=== PATIENT | male | born 1980 | race Caucasian/White ===

== ENCOUNTER 2024-01-16 21:46 | Observation (INO) | payer SELFPAY ==
[2024-01-17 00:50] VITALS: BP 167/110; TEMP 98.1; O2SAT 98
[2024-01-17 00:52] VITALS: BP 150/90
[2024-01-17 01:00] VITALS: O2SAT 98
[2024-01-17] MEDS ORDERED: MAALOX 30 ML SUSP *UDC PO PRN (03:20)
[2024-01-17] MEDS ORDERED: KETOROLAC 30 MG/ML 1ML VIAL IV PRN (03:20)
[2024-01-17] MEDS ORDERED: MOM 30ML SUSPENSION UDC PO PRN (03:20)
[2024-01-17] MEDS ORDERED: ACETAMINOPHEN 325 MG TAB PO PRN (03:20)
[2024-01-17] MEDS ORDERED: methocarbamoL 500 MG TAB PO PRN (03:45)
[2024-01-17 04:02] VITALS: BP 126/82; TEMP 97; O2SAT 98
[2024-01-17] MEDS ORDERED: ALBUTEROL SULFATE 2.5MG/0.5ML INH NEB SOLN NEB PRN (04:10)
[2024-01-17] MEDS: KETOROLAC 30 MG/ML 1ML VIAL IV PRN (04:16)
[2024-01-17 05:50] LABS: HEMATOCRIT 36.5 % (42.0-52.0); HEMOGLOBIN 12.9 g/dl (13.5-17.5); MEAN CORPUSCULAR HEMOGLOBIN 30.2 pg (27.0-33.0); MEAN CORPUSCULAR HGB CONC 35.3 g/dl (32.0-36.5); MEAN CORPUSCULAR VOLUME 85.5 fl (80.0-96.0); PLATELET COUNT, AUTOMATED 228 10^3/uL (150-450); RED BLOOD COUNT 4.27 10^6/uL (4.30-6.10); WHITE BLOOD COUNT 8.4 10^3/uL (4.0-10.0)
[2024-01-17 06:01] LABS: INR 1.01; PROTHROMBIN TIME 13.6 SECONDS (12.5-14.5)
[2024-01-17 06:20] LABS: CK-MB VALUE MASS 2.2 NG/ML (<3.6)
[2024-01-17 06:22] LABS: ALBUMIN 3.7 G/DL (3.2-5.2); ALKALINE PHOSPHATASE 56 U/L (40-129); ALT/SGPT 28 U/L (7.0-40); AST/SGOT 23 U/L (<34); BILIRUBIN,TOTAL 1.1 MG/DL (0.3-1.2); BLOOD UREA NITROGEN 12 MG/DL (9-23); CALCIUM LEVEL 9.3 MG/DL (8.5-10.1); CARBON DIOXIDE LEVEL 25 MMOL/L (20-31); CHLORIDE LEVEL 107 MMOL/L (98-107); CPK CREATINE PHOSPHOKINASE 443 U/L (46-171); CREATININE FOR GFR 0.84 MG/DL (0.70-1.30); GLOMERULAR FILTRATION RATE > 60.0 (>60); GLUCOSE, FASTING 122 MG/DL (60-100); MB/CK RELATIVE INDEX 0.49 (< OR =4); POTASSIUM SERUM 3.5 MMOL/L (3.5-5.1); SODIUM LEVEL 140 MMOL/L (136-145); TOTAL PROTEIN 6.8 G/DL (5.7-8.2)
[2024-01-17 06:29] LABS: PROCALCITONIN 0.04 ng/ml
[2024-01-17] MEDS ORDERED: CENT1TAB2 PO (06:47)
[2024-01-17] MEDS ORDERED: ZOLO100T PO (06:47)
[2024-01-17] MEDS ORDERED: HOME MED LIST COMPLETE! XX SCH (06:50)
[2024-01-17 08:00] VITALS: BP 144/89; TEMP 96.8; O2SAT 95
[2024-01-17] MEDS: DOCUSATE SODIUM 100MG CAPSULE PO SCH (09:00)
[2024-01-17] MEDS: SERTRALINE 100 MG TAB PO SCH (09:01)
[2024-01-17 12:00] VITALS: BP 143/86; TEMP 97.3; O2SAT 96
[2024-01-17] MEDS ORDERED: METH-1164 PO (13:29)
== END 2024-01-17 14:01 | disposition home or self-care (01) ==
LOC: M MSPAV 01-17 01:20 → INTOOBSV 01-17 01:20
PROVIDERS: ADMIT Student in an Organized Health Care Education/Training Program; ATTEND Hospitalist
DX: S22.20XA Unspecified fracture of sternum, initial encounter for closed fracture (principal); S20.20XA Contusion of thorax, unspecified, initial encounter; V86.45XA Person injured while boarding or alighting from a 3- or 4- wheeled all-terrain vehicle (ATV), initial encounter; Y93.9 Activity, unspecified; Y99.9 Unspecified external cause status; R91.8 Other nonspecific abnormal finding of lung field; R90.82 White matter disease, unspecified; F10.11 Alcohol abuse, in remission; Z79.899 Other long term (current) drug therapy
CPT/HCPCS: 36415; 80053; 82550; 82553; 83735; 84145; 84484; 85027; 85610; 87486; 87581; 87633; 87798; 93005; 93306; 96374; 96376; J1885